=== PATIENT | female | born 1950 | race African-American/Black ===

== ENCOUNTER 2017-05-24 10:25 | Inpatient (IN) | payer OTHER ==
[~2017-05-24] VITALS: Ht 165.1 cm; Wt 85.1 kg
[~2017-05-24 10:25] MED LIST: ALBU6.7H INH; ASCO125T PO; ASPI-1159 PO; ATOR10TA69 PO; BIMA2.5D4 EACHEYE; BUDE6.9H INH; CELE100C PO; CHOL400T15 PO; DILT240C92 PO; GABA-290 PO; METF10002 PO; MONT10TA24 PO; THIA100T72 PO
[2017-05-24] MEDS ORDERED: NITROGLYCERIN OINT 1GM/INCH UDPKT TD STA (10:32)
[2017-05-24] MEDS ORDERED: FUROSEMIDE 40MG/4ML VIAL IV STA (10:32)
[2017-05-24] MEDS ORDERED: ASPIRIN 81MG TABLET PO STA (10:32)
[2017-05-24 10:50] LABS: BASOPHILS % 0.3 % (0.0-2.0); HEMATOCRIT. 32.1 % (36.0-48.0); HEMOGLOBIN. 11.1 g/dL (12.0-16.0); LYMPHOCYTES % 11.1 % (20.0-50.0); MEAN CORPUSCULAR HEMOGLOBIN 33.8 pg (28.0-32.0); MEAN CORPUSCULAR VOLUME 97.8 fL (81.0-99.0); MEAN PLATELET VOLUME 8.8 fl (7.4-10.4); MONOCYTES % 7.3 % (2.0-8.0); NEUTROPHILS % 81.3 % (40.0-76.0); PLATELET 246 x1000/uL (130-400); RED BLOOD CELL COUNT 3.29 mill/uL (4.2-5.4); RED CELL DISTRIBUTION WIDTH 13.3 % (11.6-14.6)
[2017-05-24 11:00] LABS: INR 1.2; PROTHROMBIN TIME 12.5 sec (9.4-11.6)
[2017-05-24 11:10] LABS: CHLORIDE 103 mEq/L (98-107)
[2017-05-24 11:37] LABS: BG BILEVEL POS AIRWAY PRESSURE 15/5; BG CARBOXYHEMOGLOBIN 0.5 % (0.5-1.5); BG DEOXYHEMOGLOBIN 0.2 % (0.0-5.0); BG FRACTION INSPIRED OXYGEN 100; BG HCO3 ACT 18.8 mmol/L (22.0-26.0); BG METHEMOGLOBIN 0.3 % (0.0-1.5); BG OXYGEN SATURATION 99.8 % (92.0-98.5); BG PCO2 34.8 mmHg (35.0-45.0); BG PH 7.351 (7.350-7.450); BG PO2 375.7 mmHg (75.0-100.0); BG SAMPLE SITE RIGHT RADIAL; BG TOTAL HEMOGLOBIN 11.4 g/dL (12.0-18.0); BG VENT MODE MASK - BIPAP; BG VENT RATE 20 set
[2017-05-24] MEDS ORDERED: SODIUM BICARBONATE 8.4% 1 MEQ/ML 50ML SYR IV ONE (12:45)
[2017-05-24] MEDS ORDERED: SODIUM POLYSTYRENE SULFONATE 15 G/60 ML BOT PO ONE (12:45)
[2017-05-24 16:00] VITALS: BP 145/61
[2017-05-24 16:14] VITALS: BP 145/61
[2017-05-24] MEDS ORDERED: AMLO10TA80 PO (16:24)
[2017-05-24] MEDS ORDERED: ATEN50TA PO (16:24)
[2017-05-24] MEDS ORDERED: BIMA2.5D4 EACHEYE (16:26)
[2017-05-24] MEDS ORDERED: FURO40TA5 PO (16:31)
[2017-05-24] MEDS ORDERED: POTA20TA82 PO (16:33)
[2017-05-24] MEDS ORDERED: RIVA20TA PO (16:33)
[2017-05-24] MEDS ORDERED: AMIO100T4 PO (16:34)
[2017-05-24 18:00] VITALS: BP 154/88
[2017-05-24] MEDS ORDERED: ACETAMINOPHEN 325MG TABLET PO PRN (18:30)
[2017-05-24] MEDS ORDERED: METHYLPREDNISOLONE SOD SUCC 125 MG/2 ML VIAL IV NR (18:30)
[2017-05-24] MEDS ORDERED: ONDANSETRON HCL 4MG/2ML VIAL IV PRN (18:30)
[2017-05-24] MEDS ORDERED: DEXTROSE 50% WATER 50ML SYRINGE IV PRN (19:45)
[2017-05-24 20:00] VITALS: BP 163/86
[2017-05-24] MEDS: INSULIN LISPRO 100 UNITS/ML SUBCUT SCH (21:40)
[2017-05-24] MEDS: ATORVASTATIN CALCIUM 10MG TABLET PO SCH (21:40)
[2017-05-24] MEDS: BLOOD SUGAR DIAGNOSTIC STRIP TEST SCH (21:43)
[2017-05-24 22:00] VITALS: BP 147/80
[2017-05-24] MEDS ORDERED: SODIUM POLYSTYRENE SULFONATE 15 G/60 ML BOT PO SCH (22:05)
[2017-05-24] MEDS: METHYLPREDNISOLONE SOD SUCC 40 MG/ML VIAL IV SCH (22:32)
[2017-05-24 23:42] LABS: CREATINE KINASE 53 IU/L (26-192); CREATINE KINASE MB FRACTION 2.8 ng/mL (0.5-3.6)
[2017-05-25] VITALS (12 sets, daily range): BP systolic 127–167; BP diastolic 49–85
[2017-05-25] MEDS: AMIODARONE HCL 200 MG TABLET PO SCH ×4 (00:54→17:29)
[2017-05-25] MEDS: IPRATROPIUM BROMIDE (0.02%) 0.5MG/2.5ML NEB HHN SCH ×4 (01:00→22:33)
[2017-05-25] MEDS: BLOOD SUGAR DIAGNOSTIC STRIP TEST SCH ×4 (06:33→21:00)
[2017-05-25] MEDS: METHYLPREDNISOLONE SOD SUCC 40 MG/ML VIAL IV SCH ×3 (06:33→22:07)
[2017-05-25] MEDS: INSULIN LISPRO 100 UNITS/ML SUBCUT SCH ×4 (07:30→22:07)
[2017-05-25] MEDS: FUROSEMIDE 40MG/4ML VIAL IVP SCH (07:31)
[2017-05-25] MEDS: AMLODIPINE 10MG TABLET PO SCH (07:32)
[2017-05-25] MEDS: ATENOLOL 50 MG TABLET PO SCH (07:32)
[2017-05-25] MEDS: ASPIRIN 81MG EC TABLET PO SCH (07:32)
[2017-05-25 07:44] LABS: HEMATOCRIT. 29.9 % (36.0-48.0); HEMOGLOBIN. 10.2 g/dL (12.0-16.0); MEAN CORPUSCULAR HEMOGLOBIN 33.5 pg (28.0-32.0); MEAN CORPUSCULAR VOLUME 98.1 fL (81.0-99.0); MEAN PLATELET VOLUME 9.1 fl (7.4-10.4); PLATELET 217 x1000/uL (130-400); RED BLOOD CELL COUNT 3.04 mill/uL (4.2-5.4); RED CELL DISTRIBUTION WIDTH 13.1 % (11.6-14.6)
[2017-05-25 08:10] LABS: CHLORIDE 101 mEq/L (98-107)
[2017-05-25 08:26] LABS: CREATINE KINASE 54 IU/L (26-192); CREATINE KINASE MB FRACTION 1.9 ng/mL (0.5-3.6); PHOSPHORUS 4.2 mg/dL (2.5-4.9)
[2017-05-25] MEDS ORDERED: AMIODARONE HCL 200 MG TABLET PO SCH (09:00)
[2017-05-25] MEDS: POTASSIUM CHLORIDE 20MEQ TABLET SR PO SCH (10:32)
[2017-05-25] MEDS: RIVAROXABAN 20 MG TABLET PO SCH (17:29)
[2017-05-25] MEDS ORDERED: DEXTROSE 50% WATER 50ML SYRINGE IV PRN (17:30)
[2017-05-25 18:37] LABS: PLATELET ESTIMATE NORMAL
[2017-05-25] MEDS ORDERED: BLOOD SUGAR DIAGNOSTIC STRIP TEST SCH (21:00)
[2017-05-25] MEDS: INSULIN GLARGINE UD 100 UNITS/ML SYR SUBCUT SCH (22:07)
[2017-05-25] MEDS: ATORVASTATIN CALCIUM 10MG TABLET PO SCH (22:08)
[2017-05-26] VITALS (14 sets, daily range): BP systolic 123–149; BP diastolic 61–77
[2017-05-26] MEDS: AMIODARONE HCL 200 MG TABLET PO SCH ×5 (00:55→23:10)
[2017-05-26] MEDS: IPRATROPIUM BROMIDE (0.02%) 0.5MG/2.5ML NEB HHN SCH ×4 (02:52→20:02)
[2017-05-26] MEDS: METHYLPREDNISOLONE SOD SUCC 40 MG/ML VIAL IV SCH ×3 (06:32→21:14)
[2017-05-26] MEDS: BLOOD SUGAR DIAGNOSTIC STRIP TEST SCH ×4 (06:32→21:08)
[2017-05-26] MEDS: INSULIN LISPRO 100 UNITS/ML SUBCUT SCH ×4 (07:41→21:24)
[2017-05-26] MEDS: FUROSEMIDE 40MG/4ML VIAL IVP SCH (07:41)
[2017-05-26] MEDS: ATENOLOL 50 MG TABLET PO SCH (07:42)
[2017-05-26] MEDS: AMLODIPINE 10MG TABLET PO SCH (07:42)
[2017-05-26] MEDS: ASPIRIN 81MG EC TABLET PO SCH (07:42)
[2017-05-26] MEDS: POTASSIUM CHLORIDE 20MEQ TABLET SR PO SCH (07:43)
[2017-05-26] MEDS: RIVAROXABAN 20 MG TABLET PO SCH (17:41)
[2017-05-26] MEDS: ATORVASTATIN CALCIUM 10MG TABLET PO SCH (21:08)
[2017-05-26] MEDS: INSULIN GLARGINE UD 100 UNITS/ML SYR SUBCUT SCH (21:23)
[2017-05-27] VITALS (12 sets, daily range): BP systolic 123–151; BP diastolic 52–78
[2017-05-27] MEDS: IPRATROPIUM BROMIDE (0.02%) 0.5MG/2.5ML NEB HHN SCH ×4 (00:07→21:41)
[2017-05-27] MEDS: AMIODARONE HCL 200 MG TABLET PO SCH ×3 (05:23→17:24)
[2017-05-27] MEDS: METHYLPREDNISOLONE SOD SUCC 40 MG/ML VIAL IV SCH ×3 (05:23→21:01)
[2017-05-27] MEDS: BLOOD SUGAR DIAGNOSTIC STRIP TEST SCH ×4 (05:30→20:56)
[2017-05-27 06:42] LABS: HEMATOCRIT. 30.1 % (36.0-48.0); HEMOGLOBIN. 10.1 g/dL (12.0-16.0); MEAN CORPUSCULAR HEMOGLOBIN 33.2 pg (28.0-32.0); MEAN CORPUSCULAR VOLUME 99.3 fL (81.0-99.0); MEAN PLATELET VOLUME 9.1 fl (7.4-10.4); PLATELET 267 x1000/uL (130-400); RED BLOOD CELL COUNT 3.03 mill/uL (4.2-5.4); RED CELL DISTRIBUTION WIDTH 13.5 % (11.6-14.6)
[2017-05-27] MEDS: INSULIN LISPRO 100 UNITS/ML SUBCUT SCH ×4 (07:27→21:53)
[2017-05-27] MEDS: ATENOLOL 50 MG TABLET PO SCH (07:57)
[2017-05-27] MEDS: FUROSEMIDE 40MG/4ML VIAL IVP SCH (07:57)
[2017-05-27] MEDS: POTASSIUM CHLORIDE 20MEQ TABLET SR PO SCH (07:57)
[2017-05-27] MEDS: AMLODIPINE 10MG TABLET PO SCH (07:58)
[2017-05-27] MEDS: ASPIRIN 81MG EC TABLET PO SCH (07:58)
[2017-05-27 11:09] LABS: PLATELET ESTIMATE NORMAL
[2017-05-27] MEDS ORDERED: POTASSIUM CHLORIDE 20MEQ TABLET SR PO SCH (12:30)
[2017-05-27] MEDS: RIVAROXABAN 20 MG TABLET PO SCH (17:25)
[2017-05-27] MEDS: ATORVASTATIN CALCIUM 10MG TABLET PO SCH (21:01)
[2017-05-27] MEDS: INSULIN GLARGINE UD 100 UNITS/ML SYR SUBCUT SCH (21:54)
[2017-05-28] VITALS (10 sets, daily range): BP systolic 132–159; BP diastolic 65–95
[2017-05-28] MEDS: AMIODARONE HCL 200 MG TABLET PO SCH ×4 (00:52→16:55)
[2017-05-28] MEDS: IPRATROPIUM BROMIDE (0.02%) 0.5MG/2.5ML NEB HHN SCH ×3 (02:00→14:17)
[2017-05-28] MEDS: BLOOD SUGAR DIAGNOSTIC STRIP TEST SCH ×3 (05:29→16:45)
[2017-05-28] MEDS: METHYLPREDNISOLONE SOD SUCC 40 MG/ML VIAL IV SCH ×2 (05:31→14:00)
[2017-05-28 06:54] LABS: HEMATOCRIT. 33.2 % (36.0-48.0); MEAN CORPUSCULAR HEMOGLOBIN 32.8 pg (28.0-32.0); MEAN CORPUSCULAR VOLUME 98.7 fL (81.0-99.0); MEAN PLATELET VOLUME 9.2 fl (7.4-10.4); PLATELET 293 x1000/uL (130-400); RED BLOOD CELL COUNT 3.36 mill/uL (4.2-5.4); RED CELL DISTRIBUTION WIDTH 13.5 % (11.6-14.6)
[2017-05-28] MEDS: FUROSEMIDE 40MG/4ML VIAL IVP SCH (08:12)
[2017-05-28] MEDS: ATENOLOL 50 MG TABLET PO SCH (08:14)
[2017-05-28] MEDS: ASPIRIN 81MG EC TABLET PO SCH (08:14)
[2017-05-28] MEDS: POTASSIUM CHLORIDE 20MEQ TABLET SR PO SCH (08:14)
[2017-05-28] MEDS: AMLODIPINE 10MG TABLET PO SCH (08:14)
[2017-05-28] MEDS: INSULIN LISPRO 100 UNITS/ML SUBCUT SCH ×3 (08:15→16:45)
[2017-05-28 14:59] LABS: PLATELET ESTIMATE NORMAL
[2017-05-28] MEDS: RIVAROXABAN 20 MG TABLET PO SCH (16:55)
== END 2017-05-28 18:15 | disposition home or self-care (01) | DRG 291 ==
LOC: ER 10:25 → 3WST 12:44 → EDBEDREQ 12:49 → EDBEDREQTM 12:49 → ENRESERV 14:07 → 3WST 17:25
PROVIDERS: ADMIT Internal Medicine; ATTEND Internal Medicine
PROC: 5A09357 Assistance with Respiratory Ventilation, Less than 24 Consecutive Hours, Continuous Positive Airway Pressure (ICD-10-PCS; principal; 2017-05-24)
DX: I11.0 Hypertensive heart disease with heart failure (principal); J96.20 Acute and chronic respiratory failure, unspecified whether with hypoxia or hypercapnia; Z99.11 Dependence on respirator [ventilator] status; N17.9 Acute kidney failure, unspecified; I24.9 Acute ischemic heart disease, unspecified; I48.92 Unspecified atrial flutter; J44.1 Chronic obstructive pulmonary disease with (acute) exacerbation; E87.5 Hyperkalemia; E87.6 Hypokalemia; E78.5 Hyperlipidemia, unspecified; I50.9 Heart failure, unspecified; F10.20 Alcohol dependence, uncomplicated; H40.9 Unspecified glaucoma; K59.00 Constipation, unspecified; M19.90 Unspecified osteoarthritis, unspecified site; Z79.82 Long term (current) use of aspirin; Z79.84 Long term (current) use of oral hypoglycemic drugs; Z79.899 Other long term (current) drug therapy; Z80.49 Family history of malignant neoplasm of other genital organs; Z82.5 Family history of asthma and other chronic lower respiratory diseases; Z83.3 Family history of diabetes mellitus; Z87.891 Personal history of nicotine dependence; Z88.0 Allergy status to penicillin; Z91.040 Latex allergy status; Z79.01 Long term (current) use of anticoagulants; Z90.710 Acquired absence of both cervix and uterus; Z72.89 Other problems related to lifestyle
CPT/HCPCS: 36415; 36600; 71045; 80048; 80053; 82375; 82550; 82553; 82805; 82962; 83735; 83880; 84100; 84132; 84484; 85025; 85610; 85730; 93005; 93970; 94640; 94660; 96374; 96375; 97162; 99291; J1815; J1940; J2920; J2930; J3490

== ENCOUNTER 2018-01-07 17:44 | Inpatient (IN) | payer OTHER ==
[~2018-01-07] VITALS: Ht 165.1 cm; Wt 63.5 kg
[~2018-01-07 17:44] MED LIST changes: +ALBU18HF2 IH; -ALBU6.7H INH; +AMIO100T4 PO; -BUDE6.9H INH; +CARV6.2548 PO; -CELE100C PO; +CHOL200010 PO; -CHOL400T15 PO; -DILT240C92 PO; +FURO40TA5 PO; -GABA-290 PO; +GABA-531 PO; +ISOS1TAB PO; +METF-416 PO; -METF10002 PO; +POTA20TA82 PO; +RIVA20TA PO
[2018-01-07 18:27] LABS: BASOPHILS % 0.6 % (0.0-2.0); EOSINOPHILS % 0.6 % (0.0-5.0); HEMATOCRIT. 24.2 % (36.0-48.0); HEMOGLOBIN. 8.2 g/dL (12.0-16.0); LYMPHOCYTES % 9.4 % (20.0-50.0); MEAN CORPUSCULAR VOLUME 100.9 fL (81.0-99.0); MEAN PLATELET VOLUME 8.8 fl (7.4-10.4); MONOCYTES % 8.3 % (2.0-8.0); NEUTROPHILS % 81.1 % (40.0-76.0); PLATELET 294 x1000/uL (130-400); RED CELL DISTRIBUTION WIDTH 16.4 % (11.6-14.6)
[2018-01-07 18:37] LABS: CHLORIDE 98 mEq/L (98-107)
[2018-01-07] MEDS ORDERED: ASPIRIN 81MG TABLET PO ONE (19:45)
[2018-01-07] MEDS ORDERED: FUROSEMIDE 40MG/4ML VIAL IV ONE (19:45)
[2018-01-07 23:00] VITALS: BP 163/62
[2018-01-07 23:40] VITALS: BP 163/62
[2018-01-08] MEDS ORDERED: DEXTROSE 50% WATER 50ML SYRINGE IV PRN (01:45)
[2018-01-08 04:00] VITALS: BP 164/56
[2018-01-08] MEDS: CLONIDINE 0.2MG TABLET PO PRN (04:36)
[2018-01-08] MEDS: INSULIN LISPRO 100 UNITS/ML SUBCUT SCH ×4 (06:28→21:08)
[2018-01-08] MEDS: BLOOD SUGAR DIAGNOSTIC STRIP TEST SCH ×4 (06:28→20:58)
[2018-01-08 08:00] VITALS: BP 144/41
[2018-01-08] MEDS ORDERED: INFLUENZA VIRUS VACCINE(AFLURIA) 0.5ML SYR IM ONE (08:00)
[2018-01-08 08:42] VITALS: BP 144/41
[2018-01-08] MEDS ORDERED: POTASSIUM CHLORIDE 20MEQ TABLET SR PO SCH (09:00)
[2018-01-08] MEDS ORDERED: MEDICATION NOT ON FORMULARY EA (Gabapentin 300 MG) PO SCH (09:00)
[2018-01-08] MEDS ORDERED: ENOXAPARIN 40MG/0.4ML SYR SUBCUT SCH (09:00)
[2018-01-08] MEDS: GABAPENTIN 300MG CAPSULE PO SCH ×2 (09:50→18:03)
[2018-01-08] MEDS: FUROSEMIDE 40MG/4ML VIAL IVP SCH ×2 (09:51→18:04)
[2018-01-08 10:44] LABS: BG BASE EXCESS -7.4 mmol/L (-2.0-2.0); BG CARBOXYHEMOGLOBIN 0.3 % (0.5-1.5); BG DEOXYHEMOGLOBIN 3.7 % (0.0-5.0); BG FRACTION INSPIRED OXYGEN 28; BG HCO3 ACT 17.5 mmol/L (22.0-26.0); BG METHEMOGLOBIN 0.4 % (0.0-1.5); BG OXYGEN SATURATION 96.3 % (92.0-98.5); BG OXYHEMOGLOBIN 95.6 % (94.0-97.0); BG PCO2 32.5 mmHg (35.0-45.0); BG PH 7.348 (7.350-7.450); BG PO2 90.9 mmHg (75.0-100.0); BG SAMPLE SITE RIGHT RADIAL; BG TOTAL HEMOGLOBIN 8.1 g/dL (12.0-18.0); BG VENT MODE NASAL CANNULA
[2018-01-08 11:23] LABS: EOSINOPHILS % 0.8 % (0.0-5.0); HEMATOCRIT. 23.5 % (36.0-48.0); HEMOGLOBIN. 7.8 g/dL (12.0-16.0); LYMPHOCYTES % 8.7 % (20.0-50.0); MEAN CORPUSCULAR HEMOGLOBIN 33.3 pg (28.0-32.0); MEAN CORPUSCULAR VOLUME 100.7 fL (81.0-99.0); MONOCYTES % 11.1 % (2.0-8.0); NEUTROPHILS % 78.4 % (40.0-76.0); PLATELET 225 x1000/uL (130-400); RED BLOOD CELL COUNT 2.33 mill/uL (4.2-5.4); RED CELL DISTRIBUTION WIDTH 16.5 % (11.6-14.6)
[2018-01-08 11:42] LABS: CHLORIDE 100 mEq/L (98-107)
[2018-01-08 11:49] LABS: CREATINE KINASE 45 IU/L (26-192)
[2018-01-08 11:58] LABS: CREATINE KINASE MB FRACTION < 1.0 ng/mL (0.5-3.6)
[2018-01-08 12:38] VITALS: BP 144/43
[2018-01-08] MEDS: ISOSORB DINIT/HYDRALAZINE HCL 20/37.5MG TABLET PO SCH ×2 (13:24→21:04)
[2018-01-08 16:19] VITALS: BP 137/54
[2018-01-08] MEDS ORDERED: MEDICATION NOT ON FORMULARY EA (Bimatoprost (Lumigan) 1 DROP) EACHEYE SCH (17:00)
[2018-01-08 19:51] LABS: HEMATOCRIT 25.2 % (36.0-48.0); HEMOGLOBIN 8.4 g/dL (12.0-16.0)
[2018-01-08 19:57] LABS: INR 1.2; PROTHROMBIN TIME 11.8 sec (9.1-11.1)
[2018-01-08 20:00] VITALS: BP 138/57
[2018-01-08 20:04] LABS: CREATINE KINASE 42 IU/L (26-192); CREATINE KINASE MB FRACTION < 1.0 ng/mL (0.5-3.6)
[2018-01-08] MEDS: LATANOPROST 0.005% OPHTH DROPS 2.5ML BOTHEYE SCH (20:53)
[2018-01-08] MEDS: MONTELUKAST SODIUM 10MG TABLET PO SCH (20:54)
[2018-01-08] MEDS: ATORVASTATIN CALCIUM 10MG TABLET PO SCH (20:54)
[2018-01-08] MEDS ORDERED: EPOETIN ALFA 4000UNITS/ML VIAL SUBCUT NR (21:00)
[2018-01-08] MEDS ORDERED: EPOETIN ALFA 10000UNITS/ML VIAL SUBCUT NR (21:00)
[2018-01-09] VITALS: BP 128/66
[2018-01-09 01:33] LABS: HEMOGLOBIN 7.7 g/dL (12.0-16.0)
[2018-01-09] MEDS: FUROSEMIDE 40MG/4ML VIAL IVP SCH ×2 (06:15→17:23)
[2018-01-09] MEDS: ISOSORB DINIT/HYDRALAZINE HCL 20/37.5MG TABLET PO SCH ×3 (06:16→22:10)
[2018-01-09] MEDS: BLOOD SUGAR DIAGNOSTIC STRIP TEST SCH ×4 (06:25→21:00)
[2018-01-09] MEDS: INSULIN LISPRO 100 UNITS/ML SUBCUT SCH ×4 (06:27→21:00)
[2018-01-09 06:45] VITALS: BP 150/57
[2018-01-09 08:02] VITALS: BP 129/52
[2018-01-09] MEDS: PANTOPRAZOLE SODIUM 40 MG/VIAL IV SCH (08:36)
[2018-01-09] MEDS: GABAPENTIN 300MG CAPSULE PO SCH ×2 (08:36→16:50)
[2018-01-09 09:53] LABS: BASOPHILS % 0.4 % (0.0-2.0); EOSINOPHILS % 0.5 % (0.0-5.0); HEMATOCRIT. 24.1 % (36.0-48.0); HEMOGLOBIN. 8.2 g/dL (12.0-16.0); LYMPHOCYTES % 10.1 % (20.0-50.0); MEAN CORPUSCULAR HEMOGLOBIN 34.4 pg (28.0-32.0); MEAN CORPUSCULAR VOLUME 101.1 fL (81.0-99.0); MONOCYTES % 10.4 % (2.0-8.0); NEUTROPHILS % 78.6 % (40.0-76.0); PLATELET 243 x1000/uL (130-400); RED BLOOD CELL COUNT 2.38 mill/uL (4.2-5.4); RED CELL DISTRIBUTION WIDTH 16.4 % (11.6-14.6)
[2018-01-09 10:03] LABS: CHLORIDE 99 mEq/L (98-107)
[2018-01-09 12:00] VITALS: BP 161/53
[2018-01-09] MEDS: CITRIC ACID/SODIUM CITRATE SOLN 30ML UDC PO SCH ×3 (13:00→16:50)
[2018-01-09 16:00] VITALS: BP 158/65
[2018-01-09] MEDS ORDERED: GUAIFENESIN/CODEINE 200-20MG/10ML UDC PO PRN ×2 (17:45→18:30)
[2018-01-09 20:00] VITALS: BP 159/49
[2018-01-09] MEDS: MONTELUKAST SODIUM 10MG TABLET PO SCH (22:10)
[2018-01-09] MEDS: ATORVASTATIN CALCIUM 10MG TABLET PO SCH (22:10)
[2018-01-09] MEDS: THEOPHYLLINE ANHYDROUS 80 MG/15 ML 120ML PO SCH (22:11)
[2018-01-09] MEDS: LATANOPROST 0.005% OPHTH DROPS 2.5ML BOTHEYE SCH (22:11)
[2018-01-10] VITALS: BP 155/54
[2018-01-10 04:00] VITALS: BP 152/45
[2018-01-10] MEDS: BLOOD SUGAR DIAGNOSTIC STRIP TEST SCH ×4 (05:57→21:00)
[2018-01-10] MEDS: THEOPHYLLINE ANHYDROUS 80 MG/15 ML 120ML PO SCH ×3 (05:57→22:12)
[2018-01-10] MEDS: ISOSORB DINIT/HYDRALAZINE HCL 20/37.5MG TABLET PO SCH ×3 (05:57→20:28)
[2018-01-10] MEDS: FUROSEMIDE 40MG/4ML VIAL IVP SCH ×2 (06:16→17:23)
[2018-01-10] MEDS: INSULIN LISPRO 100 UNITS/ML SUBCUT SCH ×4 (06:20→22:20)
[2018-01-10 06:56] LABS: BASOPHILS % 0.4 % (0.0-2.0); EOSINOPHILS % 0.4 % (0.0-5.0); HEMATOCRIT. 24.6 % (36.0-48.0); HEMOGLOBIN. 8.3 g/dL (12.0-16.0); LYMPHOCYTES % 12.7 % (20.0-50.0); MEAN CORPUSCULAR HEMOGLOBIN 33.6 pg (28.0-32.0); MEAN CORPUSCULAR VOLUME 100.2 fL (81.0-99.0); MEAN PLATELET VOLUME 8.9 fl (7.4-10.4); MONOCYTES % 10.2 % (2.0-8.0); NEUTROPHILS % 76.3 % (40.0-76.0); PLATELET 249 x1000/uL (130-400); RED BLOOD CELL COUNT 2.46 mill/uL (4.2-5.4); RED CELL DISTRIBUTION WIDTH 16.3 % (11.6-14.6)
[2018-01-10 07:04] LABS: PHOSPHORUS 3.8 mg/dL (2.5-4.9)
[2018-01-10 08:00] VITALS: BP 152/56
[2018-01-10] MEDS: PANTOPRAZOLE SODIUM 40 MG/VIAL IV SCH (09:26)
[2018-01-10] MEDS: GABAPENTIN 300MG CAPSULE PO SCH ×2 (09:26→17:23)
[2018-01-10] MEDS: CITRIC ACID/SODIUM CITRATE SOLN 30ML UDC PO SCH ×3 (09:26→17:23)
[2018-01-10 11:56] VITALS: BP 160/55
[2018-01-10 16:00] VITALS: BP 168/56
[2018-01-10 20:00] VITALS: BP 159/65
[2018-01-10] MEDS: LATANOPROST 0.005% OPHTH DROPS 2.5ML BOTHEYE SCH (20:27)
[2018-01-10] MEDS: ATORVASTATIN CALCIUM 10MG TABLET PO SCH (20:27)
[2018-01-10] MEDS: MONTELUKAST SODIUM 10MG TABLET PO SCH (20:28)
[2018-01-11] VITALS (8 sets, daily range): BP systolic 147–179; BP diastolic 50–79
[2018-01-11] MEDS: THEOPHYLLINE ANHYDROUS 80 MG/15 ML 120ML PO SCH ×3 (06:11→21:48)
[2018-01-11] MEDS: ISOSORB DINIT/HYDRALAZINE HCL 20/37.5MG TABLET PO SCH ×3 (06:14→21:48)
[2018-01-11] MEDS: FUROSEMIDE 40MG/4ML VIAL IVP SCH ×2 (06:15→16:45)
[2018-01-11] MEDS: INSULIN LISPRO 100 UNITS/ML SUBCUT SCH ×4 (06:27→21:18)
[2018-01-11] MEDS: BLOOD SUGAR DIAGNOSTIC STRIP TEST SCH ×4 (06:27→21:18)
[2018-01-11 07:25] LABS: BASOPHILS % 0.5 % (0.0-2.0); EOSINOPHILS % 0.6 % (0.0-5.0); HEMATOCRIT. 23.2 % (36.0-48.0); LYMPHOCYTES % 8.9 % (20.0-50.0); MEAN CORPUSCULAR HEMOGLOBIN 34.2 pg (28.0-32.0); MEAN CORPUSCULAR VOLUME 99.8 fL (81.0-99.0); MEAN PLATELET VOLUME 8.9 fl (7.4-10.4); MONOCYTES % 10.8 % (2.0-8.0); NEUTROPHILS % 79.2 % (40.0-76.0); PLATELET 241 x1000/uL (130-400); RED BLOOD CELL COUNT 2.33 mill/uL (4.2-5.4); RED CELL DISTRIBUTION WIDTH 16.2 % (11.6-14.6)
[2018-01-11] MEDS: CITRIC ACID/SODIUM CITRATE SOLN 30ML UDC PO SCH ×2 (08:17→13:15)
[2018-01-11] MEDS: PANTOPRAZOLE SODIUM 40 MG/VIAL IV SCH (08:18)
[2018-01-11] MEDS: GABAPENTIN 300MG CAPSULE PO SCH ×2 (08:18→16:43)
[2018-01-11] MEDS: CLONIDINE 0.2MG TABLET PO PRN (11:48)
[2018-01-11] MEDS ORDERED: GUAIFENESIN/CODEINE 200-20MG/10ML UDC PO PRN (14:13)
[2018-01-11] MEDS ORDERED: AMLODIPINE 2.5MG TABLET PO NR (16:30)
[2018-01-11] MEDS: CITRIC ACID/SODIUM CITRATE SOLN 15ML UDC PO SCH (16:42)
[2018-01-11] MEDS: MONTELUKAST SODIUM 10MG TABLET PO SCH (21:16)
[2018-01-11] MEDS: AMLODIPINE 2.5MG TABLET PO SCH (21:17)
[2018-01-11] MEDS: ATORVASTATIN CALCIUM 10MG TABLET PO SCH (21:17)
[2018-01-11] MEDS: LATANOPROST 0.005% OPHTH DROPS 2.5ML BOTHEYE SCH (21:17)
[2018-01-12] VITALS: BP 167/71
[2018-01-12] MEDS: CLONIDINE 0.2MG TABLET PO PRN (00:24)
[2018-01-12 04:00] VITALS: BP 126/47
[2018-01-12] MEDS: ISOSORB DINIT/HYDRALAZINE HCL 20/37.5MG TABLET PO SCH ×3 (05:23→21:38)
[2018-01-12] MEDS: THEOPHYLLINE ANHYDROUS 80 MG/15 ML 120ML PO SCH ×3 (05:23→21:37)
[2018-01-12] MEDS: FUROSEMIDE 40MG/4ML VIAL IVP SCH ×2 (06:13→17:15)
[2018-01-12] MEDS: BLOOD SUGAR DIAGNOSTIC STRIP TEST SCH ×4 (06:13→20:59)
[2018-01-12] MEDS: INSULIN LISPRO 100 UNITS/ML SUBCUT SCH ×4 (06:13→20:58)
[2018-01-12 07:08] LABS: BASOPHILS % 0.5 % (0.0-2.0); HEMATOCRIT. 22.9 % (36.0-48.0); HEMOGLOBIN. 7.8 g/dL (12.0-16.0); LYMPHOCYTES % 7.6 % (20.0-50.0); MEAN CORPUSCULAR HEMOGLOBIN 34.1 pg (28.0-32.0); MEAN CORPUSCULAR VOLUME 99.7 fL (81.0-99.0); MEAN PLATELET VOLUME 9.1 fl (7.4-10.4); MONOCYTES % 10.6 % (2.0-8.0); NEUTROPHILS % 80.3 % (40.0-76.0); PLATELET 230 x1000/uL (130-400); RED CELL DISTRIBUTION WIDTH 16.2 % (11.6-14.6)
[2018-01-12 08:16] LABS: PHOSPHORUS 2.9 mg/dL (2.5-4.9)
[2018-01-12] MEDS: CITRIC ACID/SODIUM CITRATE SOLN 15ML UDC PO SCH (09:18)
[2018-01-12] MEDS: GABAPENTIN 300MG CAPSULE PO SCH ×2 (09:19→17:15)
[2018-01-12] MEDS: AMLODIPINE 2.5MG TABLET PO SCH ×2 (09:24→20:57)
[2018-01-12 12:00] VITALS: BP 134/45
[2018-01-12 16:00] VITALS: BP 153/53
[2018-01-12] MEDS ORDERED: RIVAROXABAN 15 MG TABLET PO SCH ×2 (17:00)
[2018-01-12 20:00] VITALS: BP 145/54
[2018-01-12] MEDS: MONTELUKAST SODIUM 10MG TABLET PO SCH (20:58)
[2018-01-12] MEDS: LATANOPROST 0.005% OPHTH DROPS 2.5ML BOTHEYE SCH (20:59)
[2018-01-12] MEDS: ATORVASTATIN CALCIUM 10MG TABLET PO SCH (21:36)
[2018-01-13] VITALS: BP 152/71
[2018-01-13 04:00] VITALS: BP 110/59
[2018-01-13] MEDS: THEOPHYLLINE ANHYDROUS 80 MG/15 ML 120ML PO SCH ×2 (05:46→13:29)
[2018-01-13] MEDS: ISOSORB DINIT/HYDRALAZINE HCL 20/37.5MG TABLET PO SCH ×2 (05:46→13:26)
[2018-01-13] MEDS: FUROSEMIDE 40MG/4ML VIAL IVP SCH (06:21)
[2018-01-13] MEDS: BLOOD SUGAR DIAGNOSTIC STRIP TEST SCH ×2 (06:21→11:46)
[2018-01-13] MEDS: INSULIN LISPRO 100 UNITS/ML SUBCUT SCH ×2 (06:22→13:26)
[2018-01-13 06:46] LABS: BASOPHILS % 0.5 % (0.0-2.0); EOSINOPHILS % 0.7 % (0.0-5.0); HEMATOCRIT. 24.1 % (36.0-48.0); HEMOGLOBIN. 8.1 g/dL (12.0-16.0); LYMPHOCYTES % 8.7 % (20.0-50.0); MEAN CORPUSCULAR HEMOGLOBIN 33.7 pg (28.0-32.0); MEAN CORPUSCULAR VOLUME 100.6 fL (81.0-99.0); MEAN PLATELET VOLUME 8.6 fl (7.4-10.4); MONOCYTES % 11.9 % (2.0-8.0); NEUTROPHILS % 78.2 % (40.0-76.0); PLATELET 271 x1000/uL (130-400); RED BLOOD CELL COUNT 2.39 mill/uL (4.2-5.4); RED CELL DISTRIBUTION WIDTH 16.4 % (11.6-14.6)
[2018-01-13 07:18] LABS: PHOSPHORUS 3.2 mg/dL (2.5-4.9)
[2018-01-13] MEDS ORDERED: SPIRONOLACTONE 25MG TABLET PO SCH (09:00)
[2018-01-13] MEDS: GABAPENTIN 300MG CAPSULE PO SCH ×2 (09:36→13:26)
[2018-01-13] MEDS: AMLODIPINE 2.5MG TABLET PO SCH (09:36)
[2018-01-13 12:39] VITALS: BP 155/55
[2018-01-13 14:49] VITALS: BP 155/55
== END 2018-01-13 15:45 | disposition home or self-care (01) | DRG 377 ==
LOC: ER 18:36 → 8WST 19:58 → EDBEDREQTM 20:00 → EDBEDREQ 20:00 → ENRESERV 21:30
PROVIDERS: ADMIT Internal Medicine; ATTEND Internal Medicine
DX: K92.2 Gastrointestinal hemorrhage, unspecified (principal); J96.01 Acute respiratory failure with hypoxia; I50.43 Acute on chronic combined systolic (congestive) and diastolic (congestive) heart failure; N17.9 Acute kidney failure, unspecified; E87.1 Hypo-osmolality and hyponatremia; E87.2 Acidosis; D68.9 Coagulation defect, unspecified; I13.0 Hypertensive heart and chronic kidney disease with heart failure and stage 1 through stage 4 chronic kidney disease, or unspecified chronic kidney disease; I48.92 Unspecified atrial flutter; J84.9 Interstitial pulmonary disease, unspecified; N18.4 Chronic kidney disease, stage 4 (severe); R18.8 Other ascites; D53.9 Nutritional anemia, unspecified; R16.2 Hepatomegaly with splenomegaly, not elsewhere classified; R79.89 Other specified abnormal findings of blood chemistry; E11.22 Type 2 diabetes mellitus with diabetic chronic kidney disease; E11.36 Type 2 diabetes mellitus with diabetic cataract; E78.5 Hyperlipidemia, unspecified; J45.909 Unspecified asthma, uncomplicated; E87.5 Hyperkalemia; H40.9 Unspecified glaucoma; F10.20 Alcohol dependence, uncomplicated; I27.20 Pulmonary hypertension, unspecified; I48.0 Paroxysmal atrial fibrillation; I49.5 Sick sinus syndrome; J44.9 Chronic obstructive pulmonary disease, unspecified; K76.1 Chronic passive congestion of liver; M19.90 Unspecified osteoarthritis, unspecified site; Z79.84 Long term (current) use of oral hypoglycemic drugs; Z79.01 Long term (current) use of anticoagulants; Z79.899 Other long term (current) drug therapy; Z80.49 Family history of malignant neoplasm of other genital organs; Z82.49 Family history of ischemic heart disease and other diseases of the circulatory system; Z82.5 Family history of asthma and other chronic lower respiratory diseases; Z83.3 Family history of diabetes mellitus; Z85.42 Personal history of malignant neoplasm of other parts of uterus; Z87.891 Personal history of nicotine dependence; Z88.0 Allergy status to penicillin; Z90.710 Acquired absence of both cervix and uterus; Z91.040 Latex allergy status; Z79.51 Long term (current) use of inhaled steroids; Z79.82 Long term (current) use of aspirin
CPT/HCPCS: 36415; 36600; 71045; 71250; 76700; 78582; 80048; 80076; 82270; 82375; 82533; 82550; 82553; 82805; 82962; 83735; 83880; 84100; 84443; 84484; 85014; 85018; 90686; 93005; 93970; 96374; 97110; 97116; 97162; 99291; A9558; C1893; C9113; J0885; J1815; J1940